=== PATIENT | female | born 1995 | race Caucasian/White ===

== ENCOUNTER 2017-09-03 17:23 | Emergency (ER) | payer OTHER, SELFPAY ==
[2017-09-03 17:23] VITALS: BP 131/94; PULSE 82; RESP 16; TEMP 37; O2SAT 100; BMI 27.4
--- NOTE | 2017-09-03 19:05 | EKG12_ITS ---
Test Reason : Blood Pressure : / mmHG Vent. Rate : 075 BPM Atrial Rate : 075 BPM P-R Int : 148 ms QRS Dur : 076 ms QT Int : 390 ms P-R-T Axes : 057 037 035 degrees QTc Int : 435 ms Normal sinus rhythm with sinus arrhythmia Low voltage QRS Borderline ECG Confirmed by BARBY GARG ([id number]), pictures editor KYLAH WADSWORTH ([id number]) on 09/05/2017 2:44:34 PM Referred By: ANDREW Confirmed By:BARBY GARG
--- NOTE | 2017-09-03 19:05 | CT_ITS ---
CT Head or Brain W/O Contrast INDICATION: PASSED OT AND HIT HEAD ON FLOOR,FOREHEAD CONTUSION COMPARISON: None TECHNIQUE: Noncontrast axial CT examination of the brain. Radiation dose optimization applied. FINDINGS: The ventricular system is normal in size and symmetric. The cortical sulci, sylvian fissures, and basal cisterns are well seen. The reis-white matter junction is distinct. There is no evidence of acute intracranial hemorrhage, mass effect, midline shift, or abnormal extra-axial collection. The calvarium is intact and the visualized paranasal sinuses and mastoid air cells are clear. CT/Brain/Head without Contrast IMPRESSION: No evidence of acute intracranial abnormality by noncontrast CT. at 2002 Reported and signed by: Rosi Quintana MD Electronically Signed: Rsoi Quintana MD at 19:00 EST Tel , Service support ,
--- NOTE | 2017-09-03 19:22 | NURSING ---
NO OLD EKG'S IN MUSE
[2017-09-03] MEDS: Ondansetron 4 MG/2 ML Vial IV (19:24)
[2017-09-03] MEDS: 0.9% Normal Saline 1,000 ML 1000 ML IV (19:25)
[2017-09-03 19:39] LABS: Anion Gap 7 (5-15); BUN 11 mg/dL (7-18); BUN/Creat Ratio 16.2 RATIO (10-20); Calcium,Total 8.5 mg/dL (8.5-10.1); Chloride 108 mmol/L (98-107); Creatinine, Serum 0.68 mg/dL (0.55-1.02); EST Glomerular Filtration Rate 114 mL/min (>60); Est Glom Filt Rate - Afr Amer 138 mL/min (>60); Estimated Creatinine Clearance 111.11 ml/min; Glucose 85 mg/dL (74-106); Potassium 3.9 mmol/L (3.5-5.1); Sodium Level 141 mmol/L (136-145)
[2017-09-03 19:50] LABS: Absolute Lymphocyte Count 0.63 X10^3/ul (0.83-4.51); Absolute Neutrophil Count 7.2 X10^3/uL (2.0-7.7); Basophil# 0.02 X10^3/uL; Basophil% 0.2 % (0-1); Eosinophil# 0.05 X10^3/uL; Eosinophils% 0.6 % (0-5); Hematocrit 40.7 % (37-47); Hemoglobin 13.7 g/dl (12.0-15.0); Lymphocyte # 0.63 X10^3/ul (4.0); Lymphocyte % 7.7 % (19-41); Mean Corp Hgb Conc 33.7 g/gl (32-36); Mean Corpuscular Hgb 30.2 pg (27.0-32.0); Mean Corpuscular Volume 89.8 fL (81-99); Mean Platelet Vol. 9.3 fl (6.2-12.0); Monocyte# 0.34 X10^3/uL; Monocyte% 4.1 % (0-10); Neutrophil # 7.18 X10^3/uL (2.7-7.7); Neutrophil % 87.3 % (47-70); Platelet Count 198 K/mm3 (150-450); RBC Distribution Width CV 13.3 % (11.6-14.6); RBC Distribution Width SD 43.8 fl (35.1-43.9); Red Blood Count 4.53 M/mm3 (4.2-5.4); White Blood Count 8.2 K/mm3 (4.4-11.0)
[2017-09-03 19:52] LABS: POSITIVE COUNT NO; POSITIVE DIFFERENTIAL NO; POSITIVE MORPHOLOGY NO
[2017-09-03 19:56] LABS: Pregnancy, Serum, hCG Quali. NEGATIVE Negative (0-9 Nonpreg)
--- NOTE | 2017-09-03 21:31 | ED.DEP ---
ED Disposition - Plan for ED Patient: Chief Complaint: Head Injury Instructions: ED Fainting Unkn Cause Referrals: Aquilino Wolf [Primary Care Provider] -
[2017-09-03 21:34] VITALS: PULSE 78; RESP 16; O2SAT 99
--- NOTE | 2017-09-03 22:07 | ED.VISSUMM ---
- ER Visit Summary Date of Service: 09/03/17 Chief Complaint: Syncopal episode History of Present Illness: The patient is a 22 F presenting after syncopal episode. 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 She states she was standing for 20-25 minutes prior to passing out. She states she did feel lightheaded and felt this coming on and then passed out. She fell hitting her forehead on the floor. She has nausea with no vomiting. Denies chest pain or shortness of breath. Denies fever or recent illness. She states she did eat lunch at a regular time today. Denies possibility of . Physical Examination: Vitals are stable. Patient is afebrile. Alert no acute distress. HEENT exam left forehead contusion Neck is supple, nontender Lungs are clear and equal bilaterally. Heart is regular rate and rhythm. Abdomen is soft nontender nondistended. Extremities are unremarkable. Skin is warm and dry. No focal neurologic deficit. Remainder of exam is unremarkable. Emergency Department Course and Treatment: Patient was given IV fluids, Zofran. EKG was sinus rate of 75. CBC, chemistries unremarkable. HCG negative. CT head shows no acute process. Patient is resting comfortably in the emergency department. She is feeling improved. She is advised to follow-up with her primary care physician. Advised return to ED if worsening complaints. Disposition: Discharge home Impression: Syncope This note was generated with [employer] Layer dictation software. It may contain incorrect words, spelling, and punctuation that were not noted in review of the chart prior to signing ED Disposition - Plan for ED Patient: Disposition: Home or Assisted Living Chief Complaint: Head Injury Instructions: ED Fainting Unkn Cause Referrals: Aquilino Wolf [Primary Care Provider] -
== END 2017-09-03 21:35 | disposition home or self-care (01) ==
LOC: ED 19:54
PROVIDERS: Emergency Provider Emergency Medicine
DX: R55 Syncope and collapse (principal); S00.83XA Contusion of other part of head, initial encounter; W19.XXXA Unspecified fall, initial encounter; Y93.89 Activity, other specified; Y92.218 Other school as the place of occurrence of the external cause; Y99.8 Other external cause status
CPT/HCPCS: 70450; 80048; 84703; 85025; 93005; 96361; 96374; 99283; J7030; A4216; J2405

== ENCOUNTER → 2018-11-06 09:23 | Outpatient (CLI) | payer BC, SELFPAY ==
[2018-11-06 10:36] LABS: hCG Titer Quant., Serum < 1 mIU/mL (<9 non-preg)
[2018-11-06 12:55] LABS: Chlamydia Trachomatis by PCR Negative (Negative); Neisserai gonorrhoeae by PCR Negative (Negative); Probe Check PASS; Sample Adequacy Control PASS; Specimen Processing Control PASS
[2018-11-11 17:54] LABS: HPV Reflexed? NOT INDICATED
== END ==
PROVIDERS: Referring Provider Obstetrics & Gynecology; Visit Provider Obstetrics & Gynecology
DX: Z12.4 Encounter for screening for malignant neoplasm of cervix (principal); Z11.3 Encounter for screening for infections with a predominantly sexual mode of transmission; O03.9 Complete or unspecified spontaneous abortion without complication
CPT/HCPCS: 36415; 84702; 87491; 87591; 88175; G0145

== ENCOUNTER → 2019-09-22 | Outpatient (CLI) | payer OTHER, SELFPAY ==
[2019-09-22 07:13] VITALS: BMI 27.4
--- NOTE | 2019-09-22 07:39 | RAD_ITS ---
STUDY: X-RAY - LUMBAR SPINE REASON FOR EXAM: Female, 24 years old patient with low back strain after lifting heavy patient 8 hours ago TECHNIQUE: 5 view(s) of the lumbar spine were obtained. COMPARISON: None FINDINGS: There is straightening of the normal lumbar lordosis. There is no substantial scoliosis. There is a normal alignment of the vertebrae. Normal vertebral bodies and endplates. Normal disc space heights. There is no demonstrated fracture. There is no demonstrated spondylolysis of the pars interarticulares. The soft tissue structures are unremarkable. RAD/L/S Spine Min 4 Views IMPRESSION: No radiographic evidence of acute compression or displaced fracture. Electronically Signed: Bri Ruiz MD at 8:38 EDT , Service support ,
== END | disposition home or self-care (01) ==
LOC: HPRAD 07:39
PROVIDERS: Referring Provider Physician Assistant Surgical; Visit Provider Physician Assistant Surgical
DX: S39.012A Strain of muscle, fascia and tendon of lower back, initial encounter (principal)
CPT/HCPCS: 72110

== ENCOUNTER → 2019-11-25 | Outpatient (CLI) | payer BC, SELFPAY ==
[2019-10-02 07:03] VITALS: BMI 27.4
[2019-11-25 17:31] LABS: Chlamydia Trachomatis by PCR Negative (Negative); Neisserai gonorrhoeae by PCR Negative (Negative); Probe Check PASS; Sample Adequacy Control PASS; Specimen Processing Control PASS
== END | disposition home or self-care (01) ==
PROVIDERS: Referring Provider Obstetrics & Gynecology; Visit Provider Obstetrics & Gynecology
DX: Z11.3 Encounter for screening for infections with a predominantly sexual mode of transmission (principal)
CPT/HCPCS: 87491; 87591

== ENCOUNTER → 2019-12-09 | Outpatient (CLI) | payer BC, SELFPAY ==
[2019-10-02 07:03] VITALS: BMI 27.4
[2019-12-09 12:12] LABS: Absolute Lymphocyte Count 1.61 X10^3/uL (0.83-4.51); Absolute Neutrophil Count 5.6 X10^3/uL (2.0-7.7); Basophil# 0.04 X10^3/uL; Basophil% 0.5 % (0-1); Eosinophil# 0.18 X10^3/uL; Eosinophils% 2.3 % (0-5); Hematocrit 40.3 % (37-47); Hemoglobin 13.6 g/dL (12.0-15.0); Lymphocyte # 1.61 X10^3/ul (4.0); Lymphocyte % 20.2 % (19-41); Mean Corp Hgb Conc 33.7 g/dL (32-36); Mean Corpuscular Hgb 29.6 pg (27.0-32.0); Mean Corpuscular Volume 87.8 fL (81-99); Mean Platelet Vol. 9.8 fl (6.2-12.0); Monocyte% 6.3 % (0-10); NRBC Flagged by Analyzer 0 % (0-5); Neutrophil # 5.62 X10^3/uL (2.7-7.7); Neutrophil % 70.4 % (47-70); Platelet Count 258 K/mm3 (150-450); RBC Distribution Width CV 13.4 % (11.6-14.6); RBC Distribution Width SD 42.6 fl (35.1-43.9); Red Blood Count 4.59 M/mm3 (4.2-5.4)
[2019-12-09 12:15] LABS: Color, Urine Yellow (Yellow); Glucose, Dipstick Normal (Normal); Ketone-Dipstick Negative (Negative); Leukocyte Esterase-Dipstick Negative /ul (Negative); Nitrite-Dipstick Negative (Negative); Occult Blood-Urine Negative /ul (Negative); Protein-Dipstick Negative (Negative); Specific Gravity, Urine 1.025 (1.002-1.030); Urine Bilirubin Dipstick Negative (Negative); Urine Clarity Clear (Clear); Urine Urobilinogen Normal (Normal)
[2019-12-09 12:32] LABS: Amphetamine Urine VISTA NEGATIVE (<1000 ng/mL); Barbiturate Urine VISTA NEGATIVE (< 200 ng/mL); Benzodiazepine Urine VISTA NEGATIVE (< 200 ng/mL); Cocaine Urine VISTA NEGATIVE (< 300 ng/mL); Ecstacy Urine VISTA NEGATIVE (< 500 ng/mL); Methadone Urine VISTA NEGATIVE (< 300 ng/mL); PCP Urine VISTA NEGATIVE (< 25 ng/mL); THC Urine VISTA NEGATIVE (< 50 ng/mL); Vista UDS pH Range 5
[2019-12-09 13:11] LABS: HIV - WCH Non-Reactive (Nonreactive); Hepatitis B Surface Antigen Non-Reactive (Nonreactive); Hepatitis C Antibody Non-Reactive (Nonreactive); Vitamin B12 381 pg/mL (211-911); Vitamin D,25 Hydroxy 18.9 ng/mL
[2019-12-10 03:39] LABS: Prenatal RPR NONREACTIVE (NONREACTIVE)
== END | disposition home or self-care (01) ==
LOC: WOBLAB 11:16
PROVIDERS: Visit Provider Obstetrics & Gynecology
DX: Z34.81 Encounter for supervision of other normal pregnancy, first trimester (principal)
CPT/HCPCS: 36415; 80307; 81002; 82306; 82607; 84443; 85025; 86703; 86762; 86803; 87340

== ENCOUNTER 2019-12-21 20:10 | Emergency (ER) | payer BC, SELFPAY ==
[2019-10-02 07:03] VITALS: BMI 27.4
[2019-12-21 20:10] VITALS: BP 150/75; PULSE 83; RESP 20; TEMP 36.6; O2SAT 99; BMI 31.8
--- NOTE | 2019-12-21 20:24 | EKG12_ITS ---
Test Reason : DYSRHYTHMIA Blood Pressure : / mmHG Vent. Rate : 081 BPM Atrial Rate : 081 BPM P-R Int : 138 ms QRS Dur : 082 ms QT Int : 358 ms P-R-T Axes : 052 030 027 degrees QTc Int : 415 ms Normal sinus rhythm with sinus arrhythmia Normal ECG Confirmed by BENI PISANO, KATHIE ([id number]), legal editor KYLAH WADSWORTH ([id number]) on 12/22/2019 10:06:00 AM Referred By: Confirmed By:KATHIE BAZAN MD
--- NOTE | 2019-12-21 20:31 | ED.VISSUMM ---
- ER Visit Summary Date of Service: 12/21/19 Chief Complaint: Shortness of breath History of Present Illness: The patient is a 24 F presenting with shortness of breath. She states this has been ongoing for the past 2 weeks. She states it is worse when she is at work wearing a mask. She has had allergies and rhinorrhea. She denies fever or cough. Denies chest pain. She has mild nausea with no vomiting. She is approximately 10 weeks . She denies vaginal bleeding or fluid leakage. Denies abdominal pain. Denies other PE/DVT risk factors. 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 No other known COVID exposure. She also stated her doctor recently put her on Zoloft for anxiety but she has not started this medication because she is concerned about starting it. Physical Examination: Vitals are stable. Patient is afebrile. Alert no acute distress. Pulse ox 99% on room air. HEENT exam is unremarkable. Neck is supple. Lungs are clear and equal bilaterally. Heart is regular rate and rhythm. Abdomen is soft nontender nondistended. Extremities are unremarkable. Skin is warm and dry. No focal neurologic deficit. Anxious Remainder of exam is unremarkable. Emergency Department Course and Treatment: EKG is sinus rhythm rate of 81 with no acute ischemic changes. Due to working in a intermediate, I contacted [facility] and received approval for COVID testing. COVID testing will be sent. D-dimer 0.51. CTA chest shows normal CTA chest examination, without a demonstrated pulmonary embolism or arterial dissection. Patient feels improved on reevaluation. 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 Advised return to ED for any worsening complaints. Disposition: Discharge home Impression: Dyspnea, This note was generated with SceneDoc dictation software. It may contain incorrect words, spelling, and punctuation that were not noted in review of the chart prior to signing ED Disposition - Plan for ED Patient: Referrals: Evelina Martell, AL-C [Primary Care Provider] -
[2019-12-21 20:55] VITALS: BP 150/75; PULSE 83; RESP 20; TEMP 36.6; O2SAT 99
--- NOTE | 2019-12-21 20:55 | ED.RN ---
Elfego Velasquez Rn was able to get labs for IV infiltrated. Will hold more sticks until IV is needed as no further orders are needed.
[2019-12-21 21:03] LABS: D-Dimer Quantitative (DVT/PE) 0.51 FEU/ug/m (0.27-0.49)
--- NOTE | 2019-12-21 21:04 | CT_ITS ---
STUDY: CTA CHEST REASON FOR EXAM: Female, 24 years old. WORSENING DYSPNEA/10 WEEKS - patient shielded RADIATION DOSAGE (If Supplied By Facility): CTDIvol = ( 10.08 ) mGy, DLP = ( 371.38 ) mGycm TECHNIQUE: The examination was performed with the intravenous administration of Isovue 370 75ml. Post-processing of the angiographic images was performed, with multiplanar reformation and 3D reconstruction. Individualized dose optimization techniques were used for this CT. COMPARISON: None. FINDINGS: Normal enhancement of the main pulmonary artery and right and left pulmonary arteries. Normal enhancement of the bilateral peripheral pulmonary arteries. There is no demonstrated pulmonary embolism. Normal thoracic aorta and visualized great vessels. There is no demonstrated aortic dissection. Normal heart and pericardium. Normal mediastinum. Normal hilar regions. Normal visualized trachea and bronchi. The lungs are well expanded. Normal pulmonary parenchyma. Normal pleura. Normal chest wall structures. Normal osseous structures. Normal visualized upper abdomen. CT/CTA Chest W/WO Contrast IMPRESSION: Normal CTA chest examination, without a demonstrated pulmonary embolism or arterial dissection. Electronically Signed: David Bruce MD at 22:05 EDT , Service support ,
[2019-12-21 21:20] VITALS: BP 121/69; PULSE 78; RESP 18; TEMP 36.6; O2SAT 100
[2019-12-21 22:24] VITALS: BP 120/80; PULSE 82; RESP 18; TEMP 36.6; O2SAT 93; O2SAT 94
--- NOTE | 2019-12-21 22:49 | ED.DEP ---
ED Disposition - Plan for ED Patient: Instructions: ED Dyspnea Referrals: Evelina Martell NP-C [Primary Care Provider] - Chilango Gonzalez MD [STAFF PHYSICIAN] -
== END 2019-12-21 23:26 | disposition home or self-care (01) ==
LOC: ED 20:54
PROVIDERS: Emergency Provider Emergency Medicine; PCP Nurse Practitioner
DX: O26.891 Other specified pregnancy related conditions, first trimester (principal); R06.00 Dyspnea, unspecified; Z3A.10 10 weeks gestation of pregnancy
CPT/HCPCS: 71275; 85379; 87635; 93005; 99283; G2023; Q9967; A4216; U0003

== ENCOUNTER → 2020-04-20 | Outpatient (CLI) | payer BC, SELFPAY ==
[2020-04-20 13:55] LABS: Hematocrit 36.4 % (37-47); Hemoglobin 11.8 g/dL (12.0-15.0); Mean Corp Hgb Conc 32.4 g/dL (32-36); Mean Corpuscular Hgb 30.2 pg (27.0-32.0); Mean Corpuscular Volume 93.1 fL (81-99); Mean Platelet Vol. 9.9 fl (6.2-12.0); Platelet Count 226 K/mm3 (150-450); RBC Distribution Width CV 14.2 % (11.6-14.6); RBC Distribution Width SD 47.8 fl (35.1-43.9); Red Blood Count 3.91 M/mm3 (4.2-5.4)
[2020-04-20 13:59] LABS: Glucose Challenge Gest 1H 50g 158 mg/dL (70-140)
== END | disposition home or self-care (01) ==
LOC: WOBLAB 11:11
PROVIDERS: PCP Nurse Practitioner; Visit Provider Obstetrics & Gynecology
DX: Z34.82 Encounter for supervision of other normal pregnancy, second trimester (principal)
CPT/HCPCS: 36415; 82950; 85027

== ENCOUNTER → 2020-05-03 | Outpatient (CLI) | payer SELFPAY ==
[2020-05-03 07:44] LABS: Glucose GTT-Gestation. Fasting 79 mg/dL (<105)
[2020-05-03 09:14] LABS: Glucose GTT-Gestational 1 Hr 161 mg/dL (<190)
[2020-05-03 09:56] LABS: Glucose GTT-Gestational 2 Hr 182 mg/dL (<165)
[2020-05-03 10:41] LABS: Glucose GTT-Gestational 3 Hr 172 L (<145)
== END | disposition home or self-care (01) ==
PROVIDERS: PCP Nurse Practitioner; Referring Provider Obstetrics & Gynecology; Visit Provider Obstetrics & Gynecology
DX: O24.912 Unspecified diabetes mellitus in pregnancy, second trimester (principal); Z3A.00 Weeks of gestation of pregnancy not specified
CPT/HCPCS: 36415

== ENCOUNTER → 2020-06-17 | Outpatient (CLI) | payer SELFPAY | END | disposition home or self-care (01) | LOC: LABSPEC 10:27 | PROVIDERS: PCP Nurse Practitioner; Visit Provider Obstetrics & Gynecology | DX: Z36.85 Encounter for antenatal screening for Streptococcus B (principal) | CPT/HCPCS: 87081 ==

== ENCOUNTER 2020-07-11 06:50 | Inpatient (IN) | payer SELFPAY ==
[2020-07-11] VITALS (28 sets, daily range): BP systolic 98–134; BP diastolic 53–80; PULSE 58–98; RESP 18; TEMP 36.1–37; O2SAT 82–100; BMI 36.2
[2020-07-11] MEDS: 0.9% Saline Lock 10 ML Syringe IV ×2 (07:45→17:00)
[2020-07-11 07:59] LABS: Absolute Lymphocyte Count 1.39 X10^3/uL (0.83-4.51); Absolute Neutrophil Count 7.4 X10^3/uL (2.0-7.7); Basophil# 0.04 X10^3/uL; Basophil% 0.4 % (0-1); Eosinophil# 0.17 X10^3/uL; Eosinophils% 1.8 % (0-5); Hemoglobin 11.1 g/dL (12.0-15.0); Lymphocyte # 1.39 X10^3/ul (4.0); Lymphocyte % 14.3 % (19-41); Mean Corp Hgb Conc 33.6 g/dL (32-36); Mean Corpuscular Hgb 28.7 pg (27.0-32.0); Mean Corpuscular Volume 85.3 fL (81-99); Mean Platelet Vol. 9.2 fl (6.2-12.0); Monocyte# 0.62 X10^3/uL; Monocyte% 6.4 % (0-10); NRBC Flagged by Analyzer 0 % (0-5); Neutrophil # 7.42 X10^3/uL (2.7-7.7); Neutrophil % 76.6 % (47-70); Platelet Count 259 K/mm3 (150-450); RBC Distribution Width CV 15.1 % (11.6-14.6); RBC Distribution Width SD 44.4 fl (35.1-43.9); Red Blood Count 3.87 M/mm3 (4.2-5.4); White Blood Count 9.7 K/mm3 (4.4-11.0)
--- NOTE | 2020-07-11 08:09 | PCM.HPOB.BLA ---
History and Physical Chief complaint: Induction of labor with GDM A1 History of present illness: 25-year-old at 39 weeks and 4 days with LETICIA: 07/14/2020 by LMP confirmed with 8-week ultrasound for induction of labor at term. Denies headache, visual changes, chest pain, shortness of breath, nausea vomiting, right upper quadrant pain. Denies leakage of fluid or vaginal bleeding. States good movement. Obstetric history G1: SAB G2: Current Past medical history: GDM A1 Anxiety depression Past surgical history: [place] teeth extraction Medications: Zoloft vitamin Allergies: Penicillin (hives) Social history: Denies smoking, alcohol, drug use Review of systems: Besides the above pertinent positives a full review of systems was performed and found to be negative Physical exam: Vital Signs Pulse BP 07/11/20 07:24 95 127/72 H General: Normal-appearing no acute distress HEENT: Normocephalic atraumatic no cervical lymphadenopathy Cardiac: Regular rate and rhythm no murmurs rubs or gallops Respiratory: Clear to auscultation bilaterally wheezes or crackles Abdomen: Soft, nontender, gravid. Positive bowel sounds Pelvic exam: Cervical exam: 1/thick/high heart rate tracin/moderate variability/positive accelerations/negative decelerations Galliano: Few contractions Extremities: no peripheral edema normal peripheral pulses Psych: Normal affect normal demeanor nonpressured speech Mom's Microbiology 07/11/20 07:45 Interface Orders SARS-CoV-2 Antigen (Rapid) - Pending Mom's Labs & Results 07/11/20 07/11/20 07:45 07:45 WBC 9.7 RBC 3.87 L Hgb 11.1 L Hct 33.0 L MCV 85.3 MCH 28.7 MCHC 33.6 RDW Std Deviation 44.4 H RDW Coeff of Argelia 15.1 H Plt Count 259 MPV 9.2 Immature Gran % (Auto) 0.500 Neut % (Auto) 76.6 H Lymph % (Auto) 14.3 L Edwards % (Auto) 6.4 Eos % (Auto) 1.8 Baso % (Auto) 0.4 Absolute Neuts (auto) 7.4 Absolute Lymphs (auto) 1.39 Nucleated RBC % 0 Blood Type Pending Antibody Screen Pending Assessment and plan: 25-year-old G2, P0 at 39 weeks and 4 days induction of labor at term for GDM A1. Admit to labor and delivery Cytotec induction GDM A1: Every 4 hour blood sugars GBS negative Routine orders Anesthesia to see
[2020-07-11] MEDS: miSOPROStol 50 MCG TABLET VAGINAL (08:47)
[2020-07-11 09:11] LABS: Bedside Glucose 100 mg/dL (70-110)
[2020-07-11 09:11] LABS: Bedside Glucose 103 mg/dL (70-110)
[2020-07-11 13:00] LABS: Bedside Glucose 80 mg/dL (70-110)
[2020-07-11] MEDS: miSOPROStol 25 MCG TABLET VAGINAL (13:52)
[2020-07-11 16:51] LABS: Bedside Glucose 80 mg/dL (70-110)
[2020-07-11] MEDS: Lactated Ringers 1,000 ML 200 ML IV (16:59)
[2020-07-11] MEDS: fentaNYL 100 MCG/2 ML Ampul IV (17:00)
[2020-07-11] MEDS: Lactated Ringers 500 ML 999 ML IV ×2 (17:04→20:24)
--- NOTE | 2020-07-11 19:25 | PN.OBGYN_ITS ---
Subjective: No complaints. Pain well controlled now with epidural. - Physical Exam Vitals/I&O's: Vital Signs Temp Pulse BP Pulse Ox 97.9 F 92 125/74 H 82 07/11/20 18:10 07/11/20 19:11 07/11/20 19:11 07/11/20 18:21 Weight: 211 lb 3.245 oz Body Mass Index (BMI) 36.2 Intake and Output for Last 24 Hours 07/09/20 07/10/20 07/11/20 23:59 23:59 23:59 Intake Total 1370 / 1370 Output Total 300 / 300 Balance 1070 / 1070 General: Alert, Oriented x3, Cooperative, No apparent distress HEENT: Atraumatic, PERRLA Oral: Moist Mucosa Neck: Supple, No JVD Extremities: No clubbing, No cyanosis Neurological: Neuro grossly intact Psych/Mental Status: Normal Affect, Appropriate, Alert and oriented to time, place, person, mood and affect Microbiology Past 72 Hours 07/11/20 07:45 Interface Orders SARS-CoV-2 Antigen (Rapid) - Final Laboratory Results 07/11/20 07:45: WBC 9.7, RBC 3.87 L, Hgb 11.1 L, Hct 33.0 L, MCV 85.3, MCH 28.7, MCHC 33.6, RDW Std Deviation 44.4 H, RDW Coeff of Argelia 15.1 H, Plt Count 259, MPV 9.2, Immature Gran % (Auto) 0.500, Neut % (Auto) 76.6 H, Lymph % (Auto) 14.3 L, Tyler % (Auto) 6.4, Eos % (Auto) 1.8, Baso % (Auto) 0.4, Absolute Neuts (auto) 7.4, Absolute Lymphs (auto) 1.39, Nucleated RBC % 0 07/11/20 07:45: Blood Type O POSITIVE, Antibody Screen NEGATIVE 07/11/20 08:02: POC Glucose 103 07/11/20 09:03: POC Glucose 100 07/11/20 12:55: POC Glucose 80 07/11/20 16:45: POC Glucose 80 Current Medications Acetaminophen (Acetaminophen 500 Mg Tablet) 500 - 1,000 mg PO Q6H PRN PRN PRN Reason: Pain Score 1-3 Al Hydroxide/Mg Hydroxide (Mag Hydrox/Al Hydrox/Simeth 30 Ml Udc) 15 - 30 ml PO Q4H PRN PRN PRN Reason: INDIGESTION Citric Acid/Sodium Citrate (Sodium Citrate/Citric Acid 30 Ml Udc) 30 ml PO X1 PRN PRN Reason: Section Ephedrine Sulfate (Ephedrine Sulfate 50 Mg/Ml Ampul) 10 mg IV Q10M PRN PRN Reason: hypotension Ephedrine Sulfate (Ephedrine Sulfate 50 Mg/Ml Ampul) 10 mg IM Q30M PRN PRN Reason: hypotension Fentanyl Citrate (Fentanyl 100 Mcg/2 Ml Ampul) 25 - 50 mcg IV Q2H PRN PRN PRN Reason: Pain Score 4-10 Last Admin: 07/11/20 17:00 Dose: 50 mcg Documented by: Fentanyl/Bupivacaine/Sodium Chlor (Fentanyl-Bupivacaine (Epidural) 100 Ml Bag) 0 ml EPIDURAL UD RAY; Protocol Lactated Ringer's () 500 mls @ 999 mls/hr IV .Q31M PRN PRN Reason: Epidural Last Infusion: 07/11/20 17:35 Dose: Infused Documented by: Lactated Ringer's () 500 mls @ 999 mls/hr IV .Q31M PRN PRN Reason: Corrective Measures Lactated Ringer's () 1,000 mls @ 50 mls/hr IV .Q20H RAY Last Infusion: 07/11/20 17:35 Dose: 200 mls/hr Documented by: Nalbuphine HCl (Nalbuphine 10 Mg/Ml Ampul) 5 mg IV Q3H PRN PRN PRN Reason: ITCHING Naloxone HCl (Naloxone 0.4 Mg/Ml Syringe) 0.02 mg IV Q1M PRN PRN Reason: RR <10 and pt unresponsive Ondansetron HCl (Ondansetron 4 Mg/2 Ml Vial) 4 mg IV Q4H PRN PRN PRN Reason: NAUSEA Prochlorperazine Edisylate (Prochlorperazine 10 Mg/2 Ml Vial) 10 mg IV Q6H PRN PRN PRN Reason: NAUSEA Sodium Chloride (0.9% Saline Lock 10 Ml Syringe) 10 - 40 ml IV X1 PRN PRN Reason: SALINE FLUSH Last Admin: 07/11/20 17:00 Dose: 10 ml Documented by: Medical Necessity - Tobacco Use Smoking Status: Never smoker Assessment/Plan All Active Problems (Last Reviewed 10/02/19 @ 07:03 by Rosa Lindquist) Low back strain (Acute) Patient seen and examined. Cervical exam . Discussed AROM with patient risk benefits alternatives. Patient in agreement AROM. AROM for clear fluid. IUPC and FSE placed. 4-minute decelerations to the 60s status post AROM resolved with hands and knees position, IV fluid bolus. heart tones now 110/moderate variability/negative accelerations/single late deceleration otherwise no decelerations. To d/c O2. To transition from hands and knees to lateral position. We will continue expectant management. If needed will start Pitocin but will ensure reassuring heart tones at this time.
[2020-07-11 19:36] LABS: Bedside Glucose 98 mg/dL (70-110)
[2020-07-11] MEDS: Ondansetron 4 MG/2 ML Vial IV (20:45)
[2020-07-11 20:55] LABS: Bedside Glucose 88 mg/dL (70-110)
[2020-07-11 21:55] LABS: Bedside Glucose 101 mg/dL (70-110)
[2020-07-11] MEDS: fentaNYL-bupivacaine (epidural) 100 ML BAG EPIDURAL (22:44)
[2020-07-11 23:00] LABS: Bedside Glucose 73 mg/dL (70-110)
[2020-07-11] MEDS: Oxytocin 30 units/NS 500 ml 30 UNITS/500 ML IV.SOLN 334 UNITS IV (23:49)
[2020-07-12] VITALS (19 sets, daily range): BP systolic 106–139; BP diastolic 56–78; PULSE 85–107; RESP 16–18; TEMP 36.1–37.2; O2SAT 98–100
--- NOTE | 2020-07-12 00:28 | PCM.OPRPT ---
Vaginal Delivery Date of Procedure: 07/12/20 Pre-Operative Diagnosis: Term , GDMA1, nonreassuring heart tones, maternal exhaustion Post-Operative Diagnosis: Term , GDMA1, nonreassuring heart tones, maternal exhaustion Description of Procedure: Procedure: Forceps assisted vaginal delivery Surgeon: Israel Ruiz MD Anesthesia: Epidural EBL 400 cc Complications: None Findings: Female infant, vertex position direct OA. Apgars 8/9. Bilateral sulcal lacerations. Indications and consent: Patient arrived for induction of labor at term for GDM A1 via Cytotec. Patient's labor progressed to 5 cm, AROM was performed, IUPC and FSE were placed. Prolonged deceleration as previously documented noted. Followed by recovery and later category 2 tracing with recurrent late decelerations. Upon my arrival patient was complete and 0 station, structures were given to begin pushing. Thick meconium was noted during pushing. Patient pushed with me at bedside for greater than 2 hours. heart tones with late decelerations with pushing. Cervical exam +2 station direct OA position. Pelvis was felt to be appropriate for vaginal delivery. The epidural anesthesia was adequate for pain relief. The decision was made to proceed with forceps assisted vaginal delivery. The process was explained to the patient. The patient stated understanding the risks that include but are not limited to head injury and maternal tissue injury. The patient desired to proceed. All questions were answered. Keypunch Operators Supervisor was informed and requests at bedside. Procedure: Patient's bladder was emptied via Rahman catheter. Forceps were opened, and each blade lubricated. Vaginal examination confirmed direct OA and +2 station. Phantom application of the forceps was performed in front of the perineum. The handle of the left branch was held in the left hand and the tip of the blade was gently introduced into the left side of the vagina with the right hand. In a similar fashion, the right plate was placed into the right side of the vagina. Bilateral application was confirmed and 2 branches were locked with ease. Gentle traction in the axis of the pelvis was applied in coordination with contractions and maternal pushing effort. The angles of the forceps were gradually elevated when the occiput is delivered onto the pubic symphysis. The forceps were then disarticulated and removed. The shoulder and the rest of the body delivered without difficulty. Placenta was delivered intact. Fundal massage was performed and IV oxytocin was administrated. Cervix and vaginal wall were thoroughly examined. Bilateral sulcal lacerations were noted and repaired in typical fashion. was examined after delivery. No visible lacerations or bruises were found.
--- NOTE | 2020-07-12 00:43 | DCINST_ITS ---
<Israel Ruiz - Last Filed: 07/12/20 00:43> Discharge Diet: No Restrictions Discharge Activity: Return to Normal Activity, May Drive, May Shower May resume sexual activity in: 2 weeks Weight Bearing Status: Weight bearing as tolerated Call your doctor if your incision/area has: Foul Smelling Discharge Call your doctor if you observe: Fever of 101 or Higher, Shortness of breath, Chest pain Additional Instructions: If you experience any of the following, contact your healthcare provider. * Bleeding that soaks a pad every hour for 2 hours * Fever 100.4 or higher * Unrelieved incision or abdominal pain * Swelling, redness, discharge or bleeding from your incision or episiotomy site * Your incision begins to separate * Problems urinating (including inability to urinate or burning while urinating). * Visual changes * Severe headache * Flu-like symptoms * Pain or redness in one of both of your breasts * Pain, warmth, tenderness or swelling in your legs, especially the calf area * Frequent nausea and vomiting * Symptoms of depression or anxiety If you experience any of the following, call 911 or go to the nearest Emergency Room. * Chest pain * Problems breathing * Seizure activity * Partial or complete paralysis of a body part, slurred speech, weakness or drooping of the face, or a sudden inability to walk or hold your balance Allergies/Adverse Reactions: Allergies Penicillins Allergy (Verified 07/11/20 08:18) [facility]. Medications to take at Discharge Vit No.130/Iron/Folic [ Tablet] 1 ea PO DAILY 07/11/20 Please Follow Up With: Israel Ruiz MD When: 4 to 6 weeks Primary Care Physician: Evelina Martell NATIONAL VAN OWNER OPERATOR, NATIONAL VAN OWNER OPERATOR-C [Primary Care Provider] - Test Results: Test results from this visit will be discussed in further detail at your follow- up appointment, if applicable. <Angelica Motley - Last Filed: 07/13/20 08:45> Discharge Diet: No Restrictions Discharge Activity: Return to Normal Activity, May Drive, May Shower May resume sexual activity in: 4-6 weeks Call your doctor if you observe: Fever of 101 or Higher, Inability to have a bowel movement, Using more than one pad per hour, Shortness of breath, Chest pain, Calf discomfort, Uncontrolled pain Additional Instructions: If you experience any of the following, contact your healthcare provider. * Bleeding that soaks a pad every hour for 2 hours * Fever 100.4 or higher * Unrelieved incision or abdominal pain * Swelling, redness, discharge or bleeding from your incision or episiotomy site * Your incision begins to separate * Problems urinating (including inability to urinate or burning while urinating). * Visual changes * Severe headache * Flu-like symptoms * Pain or redness in one of both of your breasts * Pain, warmth, tenderness or swelling in your legs, especially the calf area * Frequent nausea and vomiting * Symptoms of depression or anxiety If you experience any of the following, call 911 or go to the nearest Emergency Room. * Chest pain * Problems breathing * Seizure activity * Partial or complete paralysis of a body part, slurred speech, weakness or drooping of the face, or a sudden inability to walk or hold your balance Test Results: Test results from this visit will be discussed in further detail at your follow- up appointment, if applicable.
--- NOTE | 2020-07-12 00:43 | PCM.DCVAG ---
<Israel Ruiz - Last Filed: 07/12/20 00:43> Discharge Diet: No Restrictions Discharge Activity: Return to Normal Activity, May Drive, May Shower May resume sexual activity in: 2 weeks Weight Bearing Status: Weight bearing as tolerated Call your doctor if your incision/area has: Foul Smelling Discharge Call your doctor if you observe: Fever of 101 or Higher, Shortness of breath, Chest pain Additional Instructions: If you experience any of the following, contact your healthcare provider. Bleeding that soaks a pad every hour for 2 hours Fever 100.4 or higher Unrelieved incision or abdominal pain Swelling, redness, discharge or bleeding from your incision or episiotomy site Your incision begins to separate Problems urinating (including inability to urinate or burning while urinating). Visual changes Severe headache Flu-like symptoms Pain or redness in one of both of your breasts Pain, warmth, tenderness or swelling in your legs, especially the calf area Frequent nausea and vomiting Symptoms of depression or anxiety If you experience any of the following, call 911 or go to the nearest Emergency Room. Chest pain Problems breathing Seizure activity Partial or complete paralysis of a body part, slurred speech, weakness or drooping of the face, or a sudden inability to walk or hold your balance Allergies/Adverse Reactions: Allergies Penicillins Allergy (Verified 07/11/20 08:18) Unknown has taken other n's meds recently. Medications to take at Discharge Vit No.130/Iron/Folic [ Tablet] 1 ea PO DAILY 07/11/20 Please Follow Up With: Israel Ruiz MD When: 4 to 6 weeks Primary Care Physician: Evelina Martell MEDIA DIRECTOR, MEDIA DIRECTOR-C [Primary Care Provider] - Test Results: Test results from this visit will be discussed in further detail at your follow-up appointment, if applicable. <Angelica Motley - Last Filed: 07/13/20 08:45> Discharge Diet: No Restrictions Discharge Activity: Return to Normal Activity, May Drive, May Shower May resume sexual activity in: 4-6 weeks Call your doctor if you observe: Fever of 101 or Higher, Inability to have a bowel movement, Using more than one pad per hour, Shortness of breath, Chest pain, Calf discomfort, Uncontrolled pain Additional Instructions: If you experience any of the following, contact your healthcare provider. Bleeding that soaks a pad every hour for 2 hours Fever 100.4 or higher Unrelieved incision or abdominal pain Swelling, redness, discharge or bleeding from your incision or episiotomy site Your incision begins to separate Problems urinating (including inability to urinate or burning while urinating). Visual changes Severe headache Flu-like symptoms Pain or redness in one of both of your breasts Pain, warmth, tenderness or swelling in your legs, especially the calf area Frequent nausea and vomiting Symptoms of depression or anxiety If you experience any of the following, call 911 or go to the nearest Emergency Room. Chest pain Problems breathing Seizure activity Partial or complete paralysis of a body part, slurred speech, weakness or drooping of the face, or a sudden inability to walk or hold your balance Test Results: Test results from this visit will be discussed in further detail at your follow-up appointment, if applicable.
[2020-07-12] MEDS: Ibuprofen 600 MG Tablet PO (05:49)
[2020-07-12 06:41] LABS: Bedside Glucose 98 mg/dL (70-110)
--- NOTE | 2020-07-12 08:35 | PN.OBGYN_ITS ---
Subjective: Reports she is sore vaginally, but this is manageable. She is ambulating and voiding without difficulty. Denies headache or vision changes. She is b reastfeeding. Denies heavy lochia. Objective: AVSS - Physical Exam Vitals/I&O's: Vital Signs Temp Pulse Resp BP Pulse Ox 98.4 F 92 18 118/64 100 07/12/20 07:53 07/12/20 07:54 07/12/20 07:53 07/12/20 07:54 07/12/20 01:42 Oxygen Delivery Method Room Air Weight: 95.8 kg Body Mass Index (BMI) 36.2 Intake and Output for Last 24 Hours 07/10/20 07/11/20 07/12/20 23:59 23:59 23:59 Intake Total 2149.78 / 2149.78 500 / 500 Output Total 300 / 300 Balance 1849.78 / 1849.78 500 / 500 General: Alert, Oriented x3, Cooperative, No apparent distress HEENT: Atraumatic, Normocephalic Lungs: Clear to auscultation, Normal air movement Cardiovascular: Regular rate, Regular Rhythm, Normal S1, Normal S2 Abdomen: Soft, Non Tender, Non-Distended, - - Fundus firm and nontender at 1 FW below umbilicus, lochia scant Extremities: No Calf Tenderness, - - non-pitting pedal edema Neurological: Neuro grossly intact Psych/Mental Status: Normal Affect, Appropriate, Alert and oriented to time, place, person, mood and affect Microbiology Past 72 Hours 07/11/20 07:45 Interface Orders SARS-CoV-2 Antigen (Rapid) - Final Laboratory Results 07/11/20 07:45: Blood Type O POSITIVE, Antibody Screen NEGATIVE 07/11/20 08:02: POC Glucose 103 07/11/20 09:03: POC Glucose 100 07/11/20 12:55: POC Glucose 80 07/11/20 16:45: POC Glucose 80 07/11/20 19:29: POC Glucose 98 07/11/20 20:51: POC Glucose 88 07/11/20 21:49: POC Glucose 101 07/11/20 22:45: POC Glucose 73 07/12/20 06:32: POC Glucose 98 Current Medications Acetaminophen (Acetaminophen 500 Mg Tablet) 1,000 mg PO Q8H PRN PRN PRN Reason: Pain Score 1-3 Bisacodyl (Bisacodyl 10 Mg Suppository) 10 mg RECTAL UD PRN PRN Reason: If no BM Dibucaine (Dibucaine 30 Gm Tube) 1 applic TOPICAL TID PRN PRN; Protocol PRN Reason: Discomfort Ephedrine Sulfate (Ephedrine Sulfate 50 Mg/Ml Ampul) 10 mg IV Q10M PRN PRN Reason: hypotension Ephedrine Sulfate (Ephedrine Sulfate 50 Mg/Ml Ampul) 10 mg IM Q30M PRN PRN Reason: hypotension Fentanyl/Bupivacaine/Sodium Chlor (Fentanyl-Bupivacaine (Epidural) 100 Ml Bag) 0 ml EPIDURAL UD RAY; Protocol Last Admin: 07/11/20 22:44 Dose: 100 ml Documented by: Hydrocortisone (Hydrocortisone 2.5% Crm) 1 applic TOPICAL TID PRN PRN; Protocol PRN Reason: Discomfort Ibuprofen (Ibuprofen 600 Mg Tablet) 600 mg PO Q6H PRN PRN PRN Reason: Pain Score 1-3 Last Admin: 07/12/20 05:49 Dose: 600 mg Documented by: Nalbuphine HCl (Nalbuphine 10 Mg/Ml Ampul) 5 mg IV Q3H PRN PRN PRN Reason: ITCHING Naloxone HCl (Naloxone 0.4 Mg/Ml Syringe) 0.02 mg IV Q1M PRN PRN Reason: RR <10 and pt unresponsive Ondansetron HCl (Ondansetron 4 Mg/2 Ml Vial) 4 mg IV Q4H PRN PRN PRN Reason: Nausea Last Admin: 07/11/20 20:45 Dose: 4 mg Documented by: Oxycodone HCl (Oxycodone 5 Mg Tablet) 5 mg PO Q4H PRN PRN PRN Reason: Pain Score 4-10 Senna/Docusate Sodium (Senna/Docusate Sodium 1 Tablet) 1 - 2 tablet PO DAILY PRN PRN PRN Reason: Constipation Simethicone (Simethicone 80 Mg Tablet) 80 mg PO PCHS PRN PRN Reason: Indigestion/Stomach pain Sodium Chloride (0.9% Saline Lock 10 Ml Syringe) 5 - 15 ml IV UD PRN PRN Reason: SALINE FLUSH Medical Necessity - Tobacco Use Smoking Status: Never smoker Assessment/Plan All Active Problems (Last Reviewed 10/02/19 @ 07:03 by Rosa Lindquist) Low back strain (Acute) 25yo PPD#1 s/p doing well. -Rh positive - -Routine care -hx GDM - fasting blood sugar this am wnl.
--- NOTE | 2020-07-12 11:00 | CASEMGMT ---
Social Work Assessment Labor and Delivery Unit Date of Referral: 07/12/2020 Time of Referral: 02:23 Referred By: Dr. Israel Ruiz Date of Intervention: 07/12/2020 Time of Intervention: 11:00 Reason for Referral: Mother of baby (MOB) with diagnosis of depression and anxiety. History obtained from: MOB, Father of baby (FOB), Nursing staff, Chart. Household composition: MOB (Francia Rivero) and FOB (Thierno Harmon) have own private home together. Infant (Brandi Harmon) to join MOB and FOB. Patient's parent/guardian status: MOB and FOB have been together for 2 years. MOB reports that was not planned but ?not avoided.? This if first infant for both MOB and FOB. MOB and FOB report to have a connection to infant. Medical History: MOB with history prior to this . MOB with vaginal delivery at 39 weeks. MOB with gestational diabetes. born on 07/11/2021 with apgars of 8 and 9 at 5min and 10min. MOB plans to breastfeed. MOB with appropriate care visits. Educational Status: MOB denies any issues with comprehension or understanding. 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 FOB works as a concrete mixer truck driver. MOB denies any financial concerns. Infant Supplies: MOB reports to have all needed supplies in the home including a crib and car seat etc. Childcare/Caregiver(s): MOB plans to be primary caregiver for infant with family for support ones MOB returns to work. Transportation: Denies any issues. Programs/Agencies Involved: MOB reports to have applied for Medicaid and WIC but to not qualify for either. Patient is currently between insurance companies. to be on FOB?s insurance and MOB aware of option for payment plan for medical bills as needed. Children Services/Legal Issues: Denies any legal issues. Mental Health History: MOB reports history of Anxiety and Depression and to have been diagnosed ?during this .? MOB reports to believe mental health ?issues? were from patient prior employer and to have now switched employers and ?things are fine now.? MOB denies currently taking any Zoloft and to now be ?feeling fine.? MOB denies any history of counseling services or suicidal thoughts, plans, intents. Substance Use History: MOB denies any substance abuse/use. Maternal and Drug Screens: No tox screens obtained. PHQ9: Did not trigger. Family/Social Stressors: MOB denies any active stressors. Support Systems: MOB reports to have needed supports in the home and community. Depression and Anxiety/Shaken Baby/Safe Sleeping: This social services designee provided MOB with resources on Depression and Anxiety, Shaken Baby and Safe Sleeping along with [facility] Resources. MOB and FOB responding appropriately to safe sleeping and shaken baby prompts. ASSESSMENT: This social services designee met with MOB, FOB and in room. Introduced self and social services designee role. MOB provided verbal permission for this social services designee to speak openly while FOB is present. MOB holding during conversation. MOB reports to be bonding with infant and ?working on .? MOB reports to have no concerns on returning to home. MOB with appropriate engagement with and this social services designee. MOB and FOB with appropriate interaction. Support provided. PLAN: MOB, FOB and to discharge to home. No further services indicated. Ernesto BARRON, LEANNE
[2020-07-13 05:06] VITALS: BP 126/70; PULSE 100; RESP 18; TEMP 36.7
[2020-07-13 05:07] VITALS: BP 126/70; PULSE 100
[2020-07-13] MEDS: Ibuprofen 600 MG Tablet PO (05:11)
--- NOTE | 2020-07-13 06:06 | NURSING ---
Reviewed and agreed with Makenna STEVENS charting.
[2020-07-13 08:50] VITALS: BP 111/67; PULSE 88
[2020-07-13 08:52] VITALS: BP 111/67; PULSE 88; RESP 16; TEMP 36.2; O2SAT 99
== END 2020-07-13 10:40 | disposition home or self-care (01) | DRG 806 ==
PROVIDERS: Admitting Provider Obstetrics & Gynecology; PCP Nurse Practitioner; Referring Provider Obstetrics & Gynecology; Visit Provider Obstetrics & Gynecology
DX: O24.420 Gestational diabetes mellitus in childbirth, diet controlled (principal); O71.4 Obstetric high vaginal laceration alone; Z37.0 Single live birth; O76 Abnormality in fetal heart rate and rhythm complicating labor and delivery; O77.0 Labor and delivery complicated by meconium in amniotic fluid; Z3A.39 39 weeks gestation of pregnancy
CPT/HCPCS: 59025; 59050; 82962; 85025; 86850; 86900; 86901; 87426; 99218; J7120; A4216; G0378; J2405

== ENCOUNTER 2021-01-30 11:54 | Emergency (ER) | payer OTHER, MEDICAID, SELFPAY ==
[2020-07-11 08:16] VITALS: BMI 36.2
[2021-01-30 11:55] VITALS: BP 116/61; PULSE 70; RESP 14; TEMP 35.1; O2SAT 97; BMI 33.3
[2021-01-30 12:06] VITALS: TEMP 36.9
--- NOTE | 2021-01-30 12:39 | RAD_ITS ---
STUDY: X-RAY CHEST REASON FOR EXAM: Female, 25 years old. Near syncope TECHNIQUE: Single AP portable view of the chest. COMPARISON: None. FINDINGS: EKG electrodes are seen. The lungs are clear and expanded. There is no demonstrated pleural abnormality. Normal size heart. Normal mediastinum and romeo. Normal visualized pulmonary arteries. Normal visualized aortic arch and descending thoracic aorta. Normal visualized thoracic spine. Normal visualized ribs, clavicles, and shoulders. There is no demonstrated abnormality of the visualized soft tissue structures of the upper abdomen. RAD/Chest 1 View (Portable) IMPRESSION: Normal x-ray examination of the chest. Electronically Signed: Phoenix Zhong MD at 14:19 EDT , Service support ,
--- NOTE | 2021-01-30 12:40 | EKG12_ITS ---
Test Reason : DIZZINESS Blood Pressure : / mmHG Vent. Rate : 069 BPM Atrial Rate : 069 BPM P-R Int : 154 ms QRS Dur : 080 ms QT Int : 396 ms P-R-T Axes : 030 012 012 degrees QTc Int : 424 ms Normal sinus rhythm Normal ECG Confirmed by CONCHITA PISANO, RIANA ([id number]), editor in chief DERICK BENNETT ([id number]) on 02/01/2021 12:32:45 PM Referred By: Confirmed By:RIANA ARANGO MD
--- NOTE | 2021-01-30 12:40 | EX.ED.DYSGE1 ---
HPI History of Present Illness Chief Complaint: Dizziness Informant: patient Narrative Narrative: 25-year-old female states that she was at work today when she began to have a pain in her abdomen. She states that since giving in June she has been getting what she feels like a gas pain in her abdomen is painful and is not easily resolved. She got that pain today and began to get pale and lightheaded. She sat down a couple times but eventually she vomited. She states that she got even more pale and eventually other staff members brought her to the emergency department. Currently she states she is feeling much better. She is not breast-feeding [facility] Medical History History of gestational diabetes Home Medications NK 01/30/21 [History Last Taken Unknown] Allergy/AdvReac Type Severity Reaction Status Date / Time Penicillins Allergy Mild Unknown Verified 01/30/21 12:07 Family History Other Hypertension Lung cancer Surgical History History of wisdom tooth extraction Social History Smoking Status: Never smoker alcohol intake: current alcohol intake frequency: holidays/special occasions only Alcohol type: wine ROS ROS ED Constitutional Constitutional ED: Denies chills or weight loss Eyes Eyes: Denies change in vision or diplopia ENT ENT ED: Denies ear pain, rhinorrhea or sore throat Cardiovascular Cardiovascular: Denies chest pain, orthopnea, palpitations or racing heartbeat Respiratory/Chest Respiratory/Chest: Denies cough, dyspnea or orthopnea Gastrointestinal Gastrointestinal: Reports abdominal pain, nausea and vomiting; Denies diarrhea Genitourinary Genitourinary ED: Denies dysuria, hematuria or urinary frequency Musculoskeletal Musculoskeletal: Denies arthralgias or myalgias Integumentary Denies abscess or rash Neurologic Neurologic: Denies headache(s) or weakness Psychiatric Psychiatric: Denies anxiety, depression, suicidal ideation or suicidal thoughts Endocrine Endocrinology: Denies polydipsia, polyphagia or polyuria Allergic/Immunologic Allergic/Immunologic ED: Denies mouth swelling, tongue swelling or urticaria EXAM Physical Exam Const Vital Signs: 01/30/21 11:55 01/30/21 12:06 01/30/21 12:08 Temperature 95.2 F L 98.4 F Temperature Source Temporal Oral Pulse Rate 70 Respiratory Rate 14 Respiratory Effort Normal Respiratory Pattern Normal Blood Pressure 116/61 Blood Pressure Mean 79 Pulse Ox 97 Oxygen Delivery Method Room Air 01/30/21 14:00 Temperature Temperature Source Pulse Rate 72 Respiratory Rate 22 H Respiratory Effort Respiratory Pattern Blood Pressure Blood Pressure Mean Pulse Ox 98 Oxygen Delivery Method Room Air Positive well nourished and well developed General Appearance ED: well developed HEENT Reports normocephalic, head/scalp atraumatic and moist mucous membranes Eyes PERRL and EOMs intact bilaterally Neck no lymphadenopathy, supple and no JVD Resp normal respiratory effort and clear to auscultation bilaterally Cardio regular rate, regular rhythm and no murmurs GI normal to inspection, nondistended, normoactive bowel sounds and non-tender Palpation: soft Back/Spine no CVA tenderness and normal ROM Extremity normal to inspection General Extremety ED: Negative for edema General Extremity: Negative for edema Neuro oriented x3 and CN's II-XII intact bilaterally Sensorium / Orientation: alert Motor Exam: strength 5/5 throughout Psych mental status grossly normal Mood & Affect: Negative for depressed or tearful Skin no rashes or lesions noted and no wounds MDM MDM MDM Narrative Medical decision making narrative: My interpretation of the chest x-ray is no acute process and radiology concurs basic blood work was negative. EKG normal sinus rhythm. Repeat examination the patient is doing well. He can discharge the patient home. Return if worsening or concerns Lab Data Attestation: I reviewed the patient's lab results. Labs: Laboratory Results - last 24 hr 01/30/21 01/30/21 01/30/21 13:20 13:20 13:20 WBC 10.1 RBC 5.13 Hgb 14.1 Hct 43.6 MCV 85.0 MCH 27.5 MCHC 32.3 RDW Std Deviation 43.5 RDW Coeff of Argelia 14.0 Plt Count 239 MPV 9.1 Immature Gran % (Auto) 0.300 Neut % (Auto) 81.9 H Lymph % (Auto) 10.1 L [place] % (Auto) 4.9 Eos % (Auto) 2.3 Baso % (Auto) 0.5 Absolute Neuts (auto) 8.3 H Absolute Lymphs (auto) 1.02 Nucleated RBC % 0 Sodium 140 Potassium 3.8 Chloride 109 H Carbon Dioxide 24.0 Anion Gap 7 BUN 9 Creatinine 0.84 Estim Creat Clear Calc 91.32 Est GFR (MDRD) Af Amer 104 Est GFR (MDRD) Non-Af 86 BUN/Creatinine Ratio 10.7 Glucose 86 Calcium 9.0 Total Bilirubin 0.50 AST 17 ALT 25 Alkaline Phosphatase 96 Troponin I High Sens 3.1 Total Protein 8.2 Albumin 4.2 Globulin 4.0 Albumin/Globulin Ratio 1.0 Serum , Qual NEGATIVE Radiography Diagnostic Testing: Radiology Impression Chest X-Ray 01/30/21 12:39 IMPRESSION: Normal x-ray examination of the chest. Electronically Signed: Phoenix Zhong MD at 14:19 EDT , Service support , EKG Initial EKG: Attestation: I personally reviewed and interpreted this EKG as follows: Comments: EKG is a normal sinus rhythm at a rate of 69 bpm. No preexcitation or QT prolongation noted Discharge Plan Triage Chief Complaint: Dizziness ED Provider: Oscar Harry Dx/Rx/DC Orders Clinical Impression: Vasovagal near syncope Instructions: ED Near-Fainting- Vagal Reaction Prescriptions: No Action NK RF: 0 Primary Care Provider: Evelina Martell NP Referrals: Evelina Martell NP, PHYSICIAN OPHTHALMOLOGIST-C [Primary Care Provider] - As Needed Disposition Disposition: Home, Self Care
[2021-01-30 13:27] LABS: Absolute Lymphocyte Count 1.02 X10^3/uL (0.83-4.51); Absolute Neutrophil Count 8.3 X10^3/uL (2.0-7.7); Basophil# 0.05 X10^3/uL; Basophil% 0.5 % (0-1); Eosinophil# 0.23 X10^3/uL; Eosinophils% 2.3 % (0-5); Hematocrit 43.6 % (37-47); Hemoglobin 14.1 g/dL (12.0-15.0); Lymphocyte # 1.02 X10^3/ul (0.83-4.51); Lymphocyte % 10.1 % (19-41); Mean Corp Hgb Conc 32.3 g/dL (32-36); Mean Corpuscular Hgb 27.5 pg (27.0-32.0); Mean Platelet Vol. 9.1 fl (6.2-12.0); Monocyte% 4.9 % (0-10); NRBC Flagged by Analyzer 0 % (0-5); Neutrophil # 8.28 X10^3/uL (2.7-7.7); Neutrophil % 81.9 % (47-70); Platelet Count 239 K/mm3 (150-450); RBC Distribution Width SD 43.5 fl (35.1-43.9); Red Blood Count 5.13 M/mm3 (4.2-5.4); White Blood Count 10.1 K/mm3 (4.4-11.0)
[2021-01-30 13:45] LABS: Internal QC Validated? YES +Cl - CLEAR BKGD; Pregnancy, Serum, hCG Quali. NEGATIVE Negative
[2021-01-30 13:47] LABS: AST(SGOT) 17 U/L (15-37); Alanine Aminotransfer ALT/SGPT 25 U/L (13-56); Albumin, Serum 4.2 g/dL (3.2-5.0); Alkaline Phosphatase 96 U/L (45-117); Anion Gap 7 (5-15); BUN 9 mg/dL (7-18); BUN/Creat Ratio 10.7 RATIO (10-20); Chloride 109 mmol/L (98-107); Creatinine, Serum 0.84 mg/dL (0.55-1.02); EST Glomerular Filtration Rate 86 mL/min (>60); Est Glom Filt Rate - Afr Amer 104 mL/min (>60); Estimated Creatinine Clearance 91.32 ml/min; Glucose 86 mg/dL (74-106); Potassium 3.8 mmol/L (3.5-5.1); Protein, Total 8.2 g/dL (6.4-8.2); Sodium Level 140 mmol/L (136-145); Troponin-I HS 3.1 pg/mL (3.0-53.7)
[2021-01-30 14:00] VITALS: PULSE 72; RESP 22; O2SAT 98
== END 2021-01-30 14:40 | disposition home or self-care (01) ==
PROVIDERS: Emergency Provider Emergency Medicine; PCP Nurse Practitioner
DX: R55 Syncope and collapse (principal)
CPT/HCPCS: 71045; 80053; 84484; 84703; 85025; 93005; 99285; A4216

== ENCOUNTER 2021-01-31 19:00 | Emergency (ER) | payer OTHER, MEDICAID, SELFPAY ==
[2021-01-30 11:55] VITALS: BMI 33.3
[2021-01-31 19:00] VITALS: BP 128/76; PULSE 71; RESP 16; TEMP 35.9; O2SAT 98; BMI 32.3
--- NOTE | 2021-01-31 19:17 | EKG12_ITS ---
Test Reason : DIZZY Blood Pressure : / mmHG Vent. Rate : 068 BPM Atrial Rate : 068 BPM P-R Int : 160 ms QRS Dur : 086 ms QT Int : 388 ms P-R-T Axes : 039 033 031 degrees QTc Int : 412 ms Normal sinus rhythm with sinus arrhythmia Normal ECG Confirmed by CONCHITA PISANO, RIANA ([id number]), movie editor DERICK BENNETT ([id number]) on 02/03/2021 10:04:05 AM Referred By: Confirmed By:RIANA ARANGO MD
--- NOTE | 2021-01-31 19:32 | EX.ED.DYSGE1 ---
HPI History of Present Illness Chief Complaint: Dizziness Informant: patient Narrative Narrative: 25-year-old female presenting with abdominal pain, vomiting, dizziness. She was seen in the ED yesterday for similar complaints. She states she has vomited 3 times in the past 2 days. She denies diarrhea. She complains of epigastric abdominal pain. She complains of lightheadedness. She denies syncope. Denies chest pain or shortness of breath. Denies other complaints. Prior similar symptoms: Yes Recent Illness/Hospitalization: No PFSH PFSH Medical History History of gestational diabetes Home Medications NK 01/30/21 [History Last Taken Unknown] Allergy/AdvReac Type Severity Reaction Status Date / Time Penicillins Allergy Mild Unknown Verified 01/31/21 19:35 Family History Other Hypertension Lung cancer Surgical History History of wisdom tooth extraction Social History Smoking Status: Never smoker alcohol intake: current alcohol intake frequency: holidays/special occasions only Alcohol type: wine ROS ROS ED Constitutional Constitutional ED: Denies fever(s) Eyes Eyes: Denies change in vision ENT ENT ED: Denies rhinorrhea or sore throat Cardiovascular Cardiovascular: Denies chest pain or palpitations Respiratory/Chest Respiratory/Chest: Denies cough or dyspnea Gastrointestinal Gastrointestinal: Reports abdominal pain, nausea and vomiting; Denies diarrhea Genitourinary Genitourinary ED: Denies dysuria Musculoskeletal Musculoskeletal: Denies myalgias Integumentary Denies rash Neurologic Neurologic: Denies headache(s) Psychiatric Psychiatric: Denies suicidal thoughts EXAM Physical Exam Const Vital Signs: 01/31/21 19:00 01/31/21 19:51 01/31/21 21:16 Temperature 96.7 F L Temperature Source Oral Pulse Rate 71 80 Respiratory Rate 16 16 Respiratory Effort Normal Respiratory Pattern Normal Blood Pressure 128/76 H 105/65 Blood Pressure Mean 93 78 Pulse Ox 98 99 Oxygen Delivery Method Room Air Room Air 01/31/21 21:53 01/31/21 23:30 Temperature Temperature Source Pulse Rate 82 72 Respiratory Rate 16 16 Respiratory Effort Respiratory Pattern Blood Pressure 108/61 123/74 H Blood Pressure Mean 76 90 Pulse Ox 99 Oxygen Delivery Method Room Air Positive well nourished and well developed General Appearance ED: well developed HEENT Reports normocephalic and head/scalp atraumatic Eyes PERRL and EOMs intact bilaterally Neck supple General: Negative for tenderness Chest Wall inspection of chest normal Resp normal respiratory effort and clear to auscultation bilaterally Cardio regular rate and regular rhythm GI non-distended Palpation: soft and tender epigastric; Negative for guarding or rebound tenderness present no CVA tenderness Extremity normal to inspection Neuro oriented x3 Sensorium / Orientation: alert Psych mental status grossly normal MDM MDM MDM Narrative Medical decision making narrative: Patient is given IV fluids, Zofran. White count is normal. Total bili 1.7, AST 436, ALT 487, alk phos 182. This is elevated from yesterday. Lipase is normal. is negative. Right upper quadrant ultrasound shows multiple gallstones. Discussed with Dr. Clarke who feels patient may need ERCP and recommends transfer to tertiary care facility. [facility] Currently there are no beds available but patient will likely have a bed available at [facility] tomorrow. She remains hemodynamically stable. Lab Data Attestation: I reviewed the patient's lab results. Labs: Laboratory Results - last 24 hr 01/31/21 01/31/21 01/31/21 19:40 19:40 19:40 WBC 4.8 RBC 4.67 Hgb 13.0 Hct 39.7 MCV 85.0 MCH 27.8 MCHC 32.7 RDW Std Deviation 43.3 RDW Coeff of Argelia 14.2 Plt Count 233 MPV 9.3 Immature Gran % (Auto) 0.200 Neut % (Auto) 64.6 Lymph % (Auto) 21.4 [place] % (Auto) 9.1 Eos % (Auto) 3.9 Baso % (Auto) 0.8 Absolute Neuts (auto) 3.1 Absolute Lymphs (auto) 1.03 Nucleated RBC % 0 Sodium 142 Potassium 3.3 L Chloride 109 H Carbon Dioxide 26.0 Anion Gap 7 BUN 11 Creatinine 0.84 Estim Creat Clear Calc 91.32 Est GFR (MDRD) Af Amer 104 Est GFR (MDRD) Non-Af 86 BUN/Creatinine Ratio 13.0 Glucose 98 Calcium 8.8 Total Bilirubin 1.70 H AST 436 H ALT 487 H Alkaline Phosphatase 182 H Total Protein 7.5 Albumin 3.9 Globulin 3.6 Albumin/Globulin Ratio 1.1 Lipase 104 Serum , Qual NEGATIVE Radiography Diagnostic Testing: Radiology Impression Gallbladder Ultrasound 01/31/21 20:29 IMPRESSION: Multiple gallstones. Electronically Signed: Phoenix Zhong MD at 21:18 EDT , Service support , EKG Initial EKG: Attestation: I personally reviewed and interpreted this EKG as follows: Interpretation: Sinus Rhythm and No Acute Injury Pattern Discharge Plan Triage Chief Complaint: Dizziness ED Provider: Irene Gillespie Dx/Rx/DC Orders Clinical Impression: Cholelithiasis, Elevated liver enzymes Prescriptions: No Action NK RF: 0 Primary Care Provider: Evelina Martell NP Referrals: Evelina Martell NP, WELL SERVICE FLOOR WORKER-C [Primary Care Provider] - Disposition Disposition: Acute Care Hospital
[2021-01-31] MEDS: 0.9% Normal Saline 1,000 ML 1000 ML IV (19:42)
[2021-01-31] MEDS: Ondansetron 4 MG/2 ML Vial IV (19:50)
[2021-01-31] MEDS: Mag Hydrox/Al Hydrox/Simeth 30 ML UDC PO (19:50)
[2021-01-31 19:59] LABS: Absolute Lymphocyte Count 1.03 X10^3/uL (0.83-4.51); Absolute Neutrophil Count 3.1 X10^3/uL (2.0-7.7); Basophil# 0.04 X10^3/uL; Basophil% 0.8 % (0-1); Eosinophil# 0.19 X10^3/uL; Eosinophils% 3.9 % (0-5); Hematocrit 39.7 % (37-47); Lymphocyte # 1.03 X10^3/ul (0.83-4.51); Lymphocyte % 21.4 % (19-41); Mean Corp Hgb Conc 32.7 g/dL (32-36); Mean Corpuscular Hgb 27.8 pg (27.0-32.0); Mean Platelet Vol. 9.3 fl (6.2-12.0); Monocyte# 0.44 X10^3/uL; Monocyte% 9.1 % (0-10); NRBC Flagged by Analyzer 0 % (0-5); Neutrophil # 3.11 X10^3/uL (2.7-7.7); Neutrophil % 64.6 % (47-70); Platelet Count 233 K/mm3 (150-450); RBC Distribution Width CV 14.2 % (11.6-14.6); RBC Distribution Width SD 43.3 fl (35.1-43.9); Red Blood Count 4.67 M/mm3 (4.2-5.4); White Blood Count 4.8 K/mm3 (4.4-11.0)
[2021-01-31 20:04] LABS: Internal QC Validated? YES +Cl - CLEAR BKGD; Pregnancy, Serum, hCG Quali. NEGATIVE Negative
[2021-01-31 20:09] LABS: ALB/GLOB Ratio 1.1 RATIO (0.9-2.4); AST(SGOT) 436 U/L (15-37); Alanine Aminotransfer ALT/SGPT 487 U/L (13-56); Albumin, Serum 3.9 g/dL (3.2-5.0); Alkaline Phosphatase 182 U/L (45-117); Anion Gap 7 (5-15); BUN 11 mg/dL (7-18); Calcium,Total 8.8 mg/dL (8.5-10.1); Chloride 109 mmol/L (98-107); Creatinine, Serum 0.84 mg/dL (0.55-1.02); EST Glomerular Filtration Rate 86 mL/min (>60); Est Glom Filt Rate - Afr Amer 104 mL/min (>60); Estimated Creatinine Clearance 91.32 ml/min; Globulin 3.6 g/dL (2.2-4.2); Glucose 98 mg/dL (74-106); Lipase 104 U/L (73-393); Potassium 3.3 mmol/L (3.5-5.1); Protein, Total 7.5 g/dL (6.4-8.2); Sodium Level 142 mmol/L (136-145)
--- NOTE | 2021-01-31 20:29 | US_ITS ---
STUDY: ABDOMINAL ULTRASOUND - RIGHT UPPER QUADRANT REASON FOR VISIT: Female, 25 years old Epigastric pain TECHNIQUE: Ultrasound evaluation of the right upper quadrant was performed with real-time and static reis-scale imaging. TECHNICAL QUALITY: Adequate. COMPARISON: None. FINDINGS: Liver: The liver measures 17.6 cm. There is normal echogenicity of the liver. The bile ducts are within normal limits. There is hepatic color flow. The direction of portal flow is hepatopetal. There is no demonstrated mass lesion. Gallbladder: Normal distended gallbladder. The gallbladder wall measures 2 mm. There is a negative sonographic Allen''s sign. There is no pericholecystic fluid. There are multiple echogenic structures within the gallbladder, consistent with multiple gallstones. Common Bile Duct (C.B.D.): The common bile duct measures 3 mm. Pancreas: Normal size of the head, body and tail of the pancreas. There is normal echogenicity of the pancreas. There is no demonstrated pancreatic mass or cyst. Right Kidney: Normal size of the right kidney. The right kidney measures 12.3 cm x 4.2 cm x 3.7 cm. Normal renal cortex. The right cortex measures 1.3 cm. There is no demonstrated renal mass or cyst. There is no right hydronephrosis. US/Gallbladder IMPRESSION: Multiple gallstones. Electronically Signed: Phoenix Zhong MD at 21:18 EDT , Service support ,
[2021-01-31 21:16] VITALS: BP 105/65; PULSE 80; RESP 16; O2SAT 99
[2021-01-31 21:53] VITALS: BP 108/61; PULSE 82; RESP 16
[2021-01-31 23:30] VITALS: BP 123/74; PULSE 72; RESP 16; O2SAT 99
[2021-02-01 01:00] VITALS: RESP 16
[2021-02-01 03:20] VITALS: RESP 16
[2021-02-01] MEDS: Morphine 4 MG/ML Syringe IV (06:29)
[2021-02-01 06:32] VITALS: BP 113/78; PULSE 72; RESP 18; O2SAT 97
--- NOTE | 2021-02-01 07:57 | NURSING ---
CALLED [facility], TALKED TO GABRIELE. SHE TOOK INFO AND WILL CALL US BACK FAXED FACESHEET TO THEM
[2021-02-01 08:15] VITALS: BP 134/69; PULSE 71; RESP 15; O2SAT 98
--- NOTE | 2021-02-01 09:04 | NURSING ---
[facility], DR VILLELA, FOR DR WARREN
--- NOTE | 2021-02-01 09:41 | NURSING ---
ACCEPTED AT [facility]. WAITING ON BED
--- NOTE | 2021-02-01 11:44 | NURSING ---
CALLED [facility], TALKED TO OLEG, ETA IS 20 MIN
[2021-02-01 12:06] VITALS: BP 139/72; PULSE 69; RESP 15; TEMP 36.4; O2SAT 99
[2021-02-01 12:16] VITALS: BP 139/72; PULSE 69; RESP 15; TEMP 36.4; O2SAT 99
== END 2021-02-01 12:19 | disposition short-term general hospital (02) ==
PROVIDERS: Emergency Provider Emergency Medicine; PCP Nurse Practitioner
DX: K80.20 Calculus of gallbladder without cholecystitis without obstruction (principal); R94.5 Abnormal results of liver function studies
CPT/HCPCS: 76705; 80053; 83690; 84703; 85025; 87426; 93005; 96361; 96374; 96375; 99285; J7030; A4216; J2405

== ENCOUNTER → 2022-05-16 | Outpatient (CLI) | payer OTHER, SELFPAY ==
[2022-05-16 08:56] LABS: Vitamin D,25 Hydroxy 35.2 ng/mL
[2022-05-16 09:03] LABS: ALB/GLOB Ratio 1.1 RATIO (0.9-2.4); AST(SGOT) 12 U/L (15-37); Alanine Aminotransfer ALT/SGPT 25 U/L (13-56); Alkaline Phosphatase 79 U/L (45-117); Anion Gap 4 (5-15); BUN 11 mg/dL (7-18); BUN/Creat Ratio 14.4 RATIO (10-20); Calcium,Total 8.7 mg/dL (8.5-10.1); Chloride 112 mmol/L (98-107); Cholesterol 157 mg/dL (200); Creatinine, Serum 0.76 mg/dL (0.55-1.02); EST Glomerular Filtration Rate 96 mL/min (>60); Est Glom Filt Rate - Afr Amer 116 mL/min (>60); Globulin 3.8 g/dL (2.2-4.2); Glucose 95 mg/dL (74-106); High Density Lipoprotein 47 mg/dL; Potassium 4.1 mmol/L (3.5-5.1); Protein, Total 7.8 g/dL (6.4-8.2); Sodium Level 141 mmol/L (136-145); T4 Free Direct 0.82 ng/dL (0.76-1.46); Triglycerides 72 mg/dL; Very Low Density Lipoprotein 14 mg/dL (5-40)
[2022-05-16 10:16] LABS: Hemoglobin A1c 4.9 % (3.8-5.6)
== END | disposition home or self-care (01) ==
PROVIDERS: PCP Nurse Practitioner Primary Care; Referring Provider Nurse Practitioner Primary Care; Visit Provider Nurse Practitioner Primary Care
DX: Z13.31 Encounter for screening for depression (principal); Z13.6 Encounter for screening for cardiovascular disorders
CPT/HCPCS: 36415; 80053; 80061; 82306; 83036; 84439; 84443

== ENCOUNTER → 2022-08-08 | Outpatient (CLI) | payer OTHER, SELFPAY ==
[2022-08-14 20:32] LABS: HPV Reflexed? NOT INDICATED
== END | disposition home or self-care (01) ==
LOC: LABSPEC 16:58
PROVIDERS: PCP Nurse Practitioner Primary Care; Visit Provider Nurse Practitioner Women's Health
DX: Z12.4 Encounter for screening for malignant neoplasm of cervix (principal)
CPT/HCPCS: 88175; G0145